=== PATIENT | male | born 1990 | race Caucasian/White ===

== ENCOUNTER → 2022-01-15 | Outpatient (CLI) | payer OTHER | LOC: M WUC 10:40 | PROVIDERS: ATTEND Physician Assistant Medical | DX: R52 Pain, unspecified (principal) ==

== ENCOUNTER → 2022-02-19 | Outpatient (CLI) | payer OTHER | LOC: M WUC 15:24 | PROVIDERS: ATTEND Physician Assistant Medical | DX: M25.551 Pain in right hip (principal) ==

== ENCOUNTER → 2022-08-12 | Outpatient (CLI) | payer OTHER | LOC: M SOG 07:54 | PROVIDERS: ATTEND Orthopaedic Surgery | DX: M25.511 Pain in right shoulder (principal) ==

== ENCOUNTER → 2023-11-15 | Outpatient (REF) | payer OTHER | LOC: M LAB REF 12:26 | PROVIDERS: ATTEND Physician Assistant Medical | DX: M54.50 Low back pain, unspecified (principal) ==

== ENCOUNTER 2024-02-22 10:58 | Emergency (ER) | payer OTHER ==
[~2024-02-22] VITALS: Ht 182.9 cm; Wt 127.0 kg
[2024-02-22 11:01] VITALS: TEMP 96.3
[2024-02-22 12:28] LABS: BASO # 0.1 10^3/uL (0.0-0.2); BASO % 0.9 % (0.0-1.0); EOS # 0.2 10^3/uL (0.0-0.5); EOS % 1.1 % (0.0-3.0); HEMATOCRIT 44.5 % (42.0-52.0); HEMOGLOBIN 15.4 g/dl (13.5-17.5); LYMPH # 1.9 10^3/uL (1.5-5.0); LYMPH % 13.4 % (24.0-44.0); MEAN CORPUSCULAR HEMOGLOBIN 30.5 pg (27.0-33.0); MEAN CORPUSCULAR HGB CONC 34.6 g/dl (32.0-36.5); MEAN CORPUSCULAR VOLUME 88.1 fl (80.0-96.0); MONO # 1.1 10^3/uL (0.0-0.8); MONO % 7.7 % (2.0-8.0); NEUTROPHILS # 10.7 10^3/uL (1.5-8.5); PLATELET COUNT, AUTOMATED 266 10^3/uL (150-450); RED BLOOD COUNT 5.05 10^6/uL (4.30-6.10)
[2024-02-22 12:51] LABS: BLOOD UREA NITROGEN 20 MG/DL (9-23); CARBON DIOXIDE LEVEL 29 MMOL/L (20-31); CHLORIDE LEVEL 103 MMOL/L (98-107); CK-MB VALUE MASS 1.8 NG/ML (<3.6); CPK CREATINE PHOSPHOKINASE 212 U/L (46-171); CREATININE FOR GFR 0.95 MG/DL (0.70-1.30); GLOMERULAR FILTRATION RATE > 60.0 (>60); GLUCOSE, FASTING 112 MG/DL (60-100); MB/CK RELATIVE INDEX 0.84 (< OR =4); POTASSIUM SERUM 4.1 MMOL/L (3.5-5.1); SODIUM LEVEL 138 MMOL/L (136-145)
[2024-02-22] MEDS: LIDOCAINE VISCOUS 2% SOLN 15ML UDC PO ONE (15:45)
[2024-02-22] MEDS: MAALOX 30 ML SUSP *UDC PO ONE (15:45)
[2024-02-22] MEDS: ONDANSETRON 4MG ORAL DISINTEGRATING TAB PO ONE (15:45)
[2024-02-22 15:46] LABS: LIPASE 55 U/L (12-53)
[2024-02-22] MEDS ORDERED: ISOVUE-370 76% 100ML VIAL As Ordered ONE (16:07)
[2024-02-22 16:17] LABS: CK-MB VALUE MASS 1.4 NG/ML (<3.6)
[2024-02-22 16:18] LABS: CPK CREATINE PHOSPHOKINASE 184 U/L (46-171); MB/CK RELATIVE INDEX 0.76 (< OR =4)
[2024-02-22] MEDS: MORPHINE 4 MG/ML 1ML VIAL IV ONE (16:31)
[2024-02-22 17:30] VITALS: BP 155/98; O2SAT 98
[2024-02-22] MEDS ORDERED: PANT40TA29 PO (17:36)
[2024-02-22] MEDS ORDERED: SUCR1ORA PO (17:37)
== END 2024-02-22 17:55 | disposition home or self-care (01) ==
LOC: M ED 10:58
DX: K27.9 Peptic ulcer, site unspecified, unspecified as acute or chronic, without hemorrhage or perforation (principal); I45.10 Unspecified right bundle-branch block; K40.90 Unilateral inguinal hernia, without obstruction or gangrene, not specified as recurrent; K76.0 Fatty (change of) liver, not elsewhere classified; F17.200 Nicotine dependence, unspecified, uncomplicated; Z79.899 Other long term (current) drug therapy
CPT/HCPCS: 71045; 71275; 74177; 80048; 82550; 82553; 83690; 84484; 85025; 93005; 96374; 99284; Q9967

== ENCOUNTER → 2024-12-07 | Outpatient (CLI) | payer OTHER ==
[~2024-12-07] MED LIST: PANT40TA29 PO; SUCR1ORA PO
== END ==
LOC: M RAD 06:40
PROVIDERS: ATTEND Orthopaedic Surgery
DX: M25.511 Pain in right shoulder (principal); M75.01 Adhesive capsulitis of right shoulder; M25.811 Other specified joint disorders, right shoulder